=== PATIENT | male | born 1945 | race Hispanic/Latino ===

== ENCOUNTER 2016-11-05 08:33 | Day surgery (SDC) | payer MEDICARE, OTHER ==
[~2016-11-05 08:33] MED LIST: GARAMYCIN IV ONE; GARAMYCIN ONE; GENTAMICIN 0.3% ONE; KENALOG-40 ONE; XYLOCAINE 1%/ EPI 1:100,000 INFILTRATI ONE
[2016-11-05] MEDS ORDERED: NACL ONE (09:57)
--- NOTE | 2016-11-05 11:05 | Anesthesia Consultation ---
Anesthesia Consult and Med Hx Date of service: 11/05/16 - Airway Anesthetic Teeth Evaluation: Good ROM Head & Neck: Adequate Mental/Hyoid Distance: Adequate Mallampati Class: Class III Intubation Access Assessment: Possibly Difficult - Pulmonary Exam CTA: Yes - Cardiac Exam Cardiac Exam: RRR - Pre-Operative Health Status ASA Pre-Surgery Classification: ASA3 Proposed Anesthetic Plan: General - Pre-Anesthesia Comment Pre-Anesthesia Comments: NPO 10a, patient had <1/2 can of fresca soda.Did not tolerate MAC last procedure 02/2016, [place] - Pulmonary Hx Sleep Apnea: Yes - Cardiovascular System Hx Hypertension: Yes (x 35 years, high cholesterol) Hx Cardia Arrhythmia: Yes (RBBB) - Gastrointestinal Hx Gastroesophageal Reflux Disease: Yes (mild) - Endocrine Hx Non-Insulin Dependent Diabetes: Yes - Other Systems Hx Obesity: Yes (BMI 43)
--- NOTE | 2016-11-05 11:08 | Anesthesia Day of Surgery ---
Anesthesia Day of Surgery - Day of Surgery Patient Examined: Yes Patient H&P Reviewed: Yes Patient is NPO: Yes
[2016-11-05] MEDS ORDERED: PEPCID IV NR (12:00)
[2016-11-05] MEDS ORDERED: NACL 0.9% 1000 ML 1,000 ML IV SCH (12:00)
[2016-11-05] MEDS ORDERED: TETRACAINE 0.5% OD SCH (12:20)
[2016-11-05] MEDS: VIGAMOX OD SCH ×3 (12:42→12:58)
[2016-11-05] MEDS: ISOPTO CARPINE OD SCH ×3 (12:42→12:58)
[2016-11-05] MEDS ORDERED: ZOFRAN ONE (13:07)
[2016-11-05] MEDS ORDERED: DECADRON ONE ×2 (13:07→14:50)
[2016-11-05] MEDS ORDERED: XYLOCAINE MPF 2% ONE (13:07)
[2016-11-05] MEDS ORDERED: SUBLIMAZE ONE (13:08)
[2016-11-05] MEDS ORDERED: DIPRIVAN 10 MG/ML IV ONE (13:08)
[2016-11-05] MEDS ORDERED: BSS OD ONE (14:10)
[2016-11-05] MEDS ORDERED: BSS PLUS IO ONE (14:16)
[2016-11-05] MEDS ORDERED: DUOVISC VISCOELASTIC INTRAOCULA ONE (14:21)
[2016-11-05] MEDS ORDERED: VISION BLUE IO ONE (14:36)
[2016-11-05] MEDS ORDERED: GARAMYCIN IV ONE (15:14)
[2016-11-05] MEDS ORDERED: TOBRADEX OD ONE (15:16)
[2016-11-05] MEDS ORDERED: PRED FORTE 1% OD ONE (15:17)
[2016-11-05] MEDS ORDERED: TOBRADEX ONE (15:23)
--- NOTE | 2016-11-05 15:41 | Operative Report ---
Operative Report Operative Report: PATIENT NAME: DATE OF : DATE OF SURGERY: 11/05/2016 PREOPERATIVE DIAGNOSIS: Fuchs dystrophy right eye POSTOPERATIVE DIAGNOSIS: [same] PROPOSED PROCEDURE: Endothelial keratoplasty with Descemets stripping/ Penetrating keratoplasty, *right eye ADDITIONAL PROCEDURE: NONE OPERATIVE PROCEDURE: 1. Endothelial keratoplasty with Descemets stripping/ Penetrating keratoplasty, right eye SURGEON: Stefany Musa MD ANESTHESIA: General anesthesia care in combination with topical and intracameral anesthesia because of the established specific risk of reflux, arrhythmias, or anxiety attacks associated with ocular manipulation, as well as the difficulty of the stamping mill tender to manage such potentially catastrophic events while simultaneously attempting to complete the surgical procedure and was deemed necessary for the patient's safety to have an anesthesiologist was present during the procedure whenever possible. The anesthesiologist was utilized to regulate the intravenous sedation of the patient so the patient was cooperative yet not asleep in order for the patient to successfully maintain fixation of the eye on the operating light of the microscope. SOUND INSTALLATION WORKER: COMPLICATIONS: None ALLERGIES: Sulfa PREOPERATIVE NOTE: The patient is a [male] who has the diagnosis or diagnoses of Fuchs dystrophy. Examination of the posterior portion of the eyes by indirect ophthalmoscopy shows the optic nerve and retina to be normal. The patient has decompensation of the cornea with dysfunction and dystrophy of the corneal endothelium. Donor tissue will be used to replace the dysfunctional endothelium utilizing a penetrating technique into the anterior chamber. This complicated technique allows the patient to maintain structural integrity of the eye making it much more resistant to traumatic rupture than a standard keratoplasty. It also allows a larger than average surface area of transplanted endothelium which hopefully in the long run will allow for longer endothelial viability and success for the surgery. It also provides for faster visual recovery and less anisometropia than previous keratoplasty techniques. It is technically more difficult because of the complicated preparation of the donor tissue and insertion of the donor tissue into the anterior chamber with fixation of the tissue without direct suturing of the donor. This also provides an increased chance of dislocation of the donor tissue in the immediate postoperative period compared to standard keratoplasty techniques. This type of corneal transplant takes over twice as long as a standard corneal transplant. Moreover, the preparation and end of surgery are more time consuming for both the surgeon and staff: the blocking of the eye requires a longer setup time as noted, the procedure itself is more complex, and the patient needs to lay face up and flat in the recovery area for a specified period of time prior to discharge. Preoperatively, it was discussed with the patient that they could have either a standard corneal transplant or a variation of a penetrating keratoplasty where only the posterior layers of the cornea are transplanted. With this new technique, as with any corneal transplant, there is always the possibility that the surgery may need to be repeated; or, in this case, also repeated with a standard corneal transplant if the visual result is not satisfactory. However, some of the advantages of this current technique are much more rapid visual recovery and a tectonically stronger eye after surgery. PROGNOSIS: Excellent INDICATIONS FOR SURGERY: The patient is undergoing surgery with the hope of eliminating or improving these visual difficulties. OPERATIVE REPORT: The patient was taken into the preoperative area and evaluated medically and found from a systemic standpoint to be suitable for the planned surgery and anesthesia. The patient was then sedated and monitored by anesthesia. The patient was next taken into the operating room where they were positioned on the operating bed. They were given drops of topical anesthetic in the operative eye. Betadine was used to scrub the periorbital area, eyelids, adjacent cheek and forehead. The prepped area was dried with sterile gauze. The patient was draped, and a wire speculum was placed between the eyelids. The horizontal diameter of the cornea was measured with calipers to assist in determining the proper sizing of the trephination blade to be used for donor incision and for removal of the patients central Descemets membrane. PREPARATION OF DONOR TISSUE: Prior to surgery, the donor tissue was inspected and found to be adequate for the planned procedure. The involved eye bank provided the usual demographic information on the donor including age, cause of , necessary screening and blood work. The results were negative regarding possible transmission of diseases from the donor. Our inspection of the donor tissue showed no gross abnormalities. The patients donor cornea was prepared by the eye bank to separate the anterior and posterior portions of the cornea for the planned surgery. This was done with a microkeratome and the anterior cap of tissue was placed back on the cornea and it was removed from the artificial anterior chamber and placed in the Optisol storage solution and sent to us for transplantation. Gentian timi kwok were placed on the epithelial, or anterior surface of the corneal cap side of the tissue for identification. The cornea was inspected prior to surgery and found to be suitable and at the time of surgery was taken out of the storage solution and carefully centered on the cutting block with the centration based on the centration med that was made the eye bank on the external surface of the cornea-the stromal side. The donor tissue was removed from the tissue storage container by carefully removing it with forceps taking care not to touch the endothelial surface but only the scleral rim Suction was applied, the centration was rechecked to make sure it was perfectly centered. Once the size of the appropriate trephine was determined, the donor was punched with the trephine. The donor cornea was then covered with tissue storage solution and put aside for use later in the surgical procedure. PREPARATION OF THE RECIPIENT CORNEA: Attention was now directed to the patients eye. My entry level marketing assistant had been applying topical anesthetic consisting of both drops and cellulose sponges soaked in 2% Xylocaine with epinephrine. The speculum had already been placed between the eyelids and the eye prepped and draped in my usual manner with Betadine solution prior to the starting the surgery. The horizontal corneal diameter was measured and the overall condition of the eye was evaluated to determine which size of trephine would best provide for as large donor button as possible without compromising the angle structures or iris. Once the trephine size was chosen, it was used lightly to med the epithelium on the corneal surface to provide a reference for later placement of the donor tissue and for removal of Descemets membrane. This was the same trephine used to punch the donor tissue. Reopen old incision if corneal: The patient had previously had a clear corneal incision of 5.0 mm for corneal surgery. This incision was able to be opened by using a Sinskey hook to separate the superficial area of the wound. Next, a cyclodialysis spatula was used to separate the deeper anterior vertical portion and the incision and then the lamellar portion. After the side port incision was made as noted below, a specially modified Santiago-Jorge Luis hook was introduced through the reopened incision into the anterior chamber and advanced to the nasal side of the chamber. The hook was used to grab the nasal side of the graft and dislodge it. Pulling with the hook, the graft was disinserted from the back surface of the patient, or recipient, cornea and removed from the eye. In this case, the Descemets, which was stripped and removed, consisted of the previous graft with the portion of stroma from the previous donor. A sharp blade was next used to make a stab incision in mid peripheral cornea into the anterior chamber. This was done so that the inner portion would be covered by the donor tissue later in the case. Gentian timi marked the incision as well. This incision was positioned to be used by my right hand. Provisc was injected into the eye. A modified Santiago-Jorge Luis hook was next placed through the stab incision and the hook was used to score Descemets membrane in a circular fashion, essentially scoring a southern ute about 1.0 mm smaller than the previously placed reference med by the trephine on the epithelium. A specially designed Descemets stripper/scraper was inserted into the eye and carefully extended across the anterior chamber in a manner not to empty the anterior chamber, to damage the iris, or to damage the lens. Starting at the nasal side of the anterior chamber, the stripper was used to catch Descemets membrane at the site of the scoring and the membrane was carefully stripped off the back surface of the cornea. The stripper was first pulled back centrally to loosen Descemets membrane there and then to each side to help try and remove the central area of Descemets membrane which had been outlined by the scoring. The membrane was then pulled out of the eye through the incision. The removed Descemets membrane was placed on the outer surface of the cornea and carefully unfolded to make sure it was removed in its entirety and that no portion was left in the central cornea. Any indication of retained central membrane was followed by reinsertion of the stripper and further removal of retained membrane. Care was taken during both the scoring and stripping not to unduly push up into the overlying cornea as that can cause tearing of the corneal tissue, producing an irregular surface which can lead to decreased visual recovery and difficulty with adherence of the donor tissue to the recipient. Once it was confirmed that Descemets membrane was removed, the incision was extended with the sharp blade for its full length into the anterior chamber. The anterior chamber was reinflated with balanced salt solution. The donor tissue was removed from the cutting block and transferred to the operative field. It was placed on the patients cornea so that the endothelium of the donor was facing up. The tissue storage solution and any blood or other material was allowed to flow off the donor tissue. A small amount of viscoelastic was then placed on the endothelial surface of the donor. Two forceps were then used to grasp an edge of the donor taking care not to actually touch the endothelium and the posterior portion of the donor, which had been previously dissected on the artificial anterior chamber, and the donor gently partially pulled apart about half of the posterior portion from the anterior portion. Tiers forceps were used to grab the tissue and insert it into the anterio chamber. Using a 30-gauge needle, a small stab incision was made in the peripheral cornea and a small amount of air was injected within the folded-over piece of donor tissue in the eye. The air was slowly injected to unfold the donor endothelial side down. Once the donor had unfolded, the anterior chamber was completely filled with air. Once the donor was in the correct position and no retained fluid or air was present between the donor and recipient, the timer was started and the anterior chamber was left completely filled with air for the designated time. OTHER SPECIFICS OF THE SURGICAL PROCEDURE: Trephine size: 8.0 mm Horizontal corneal diameter: 10.5 mm Estimated thickness of donor tissue: 90microns Time anterior chamber was completely filled with air in the operating room while the donor cornea was allowed to hold in position without any manipulation or massaging: eight minutes The patient laid face up and flat in the recovery room with a partial air bubble to help with further adherence of the donor cornea to the recipient cornea for the following length of time: 60 minutes Needle reposition of the donor: The donor button of tissue could not be massaged into the correct position on the recipient cornea. Therefore, a 30- gauge needle was bent at its tip to form a right angle of the peripheral one- third to one-half of the beveled area. This needle was introduced into the anterior chamber and used to grasp the peripheral edge of the donor tissue and pull it into the correct position. Massage was then used to provide good apposition and centration of the tissue. SUBCONJUNCTIVAL INJECTIONS: Decadron 0.1 mL PF MEDICATIONS APPLIED AT END OF SURGERY: TobraDex ointment, homatropine 5%, Decadron 8mg mg was given by I.V.. ADDITIONAL NOTES: [employer], DISCHARGE SUMMARY: The patient was released in stable condition. The patient and those with the patient were given a written sheet of postoperative instructions and counseling on any abnormal laboratory studies. The patient is to call immediately for difficulties and will otherwise see us in the morning at the office. Jorge Velazco cc: Dictated: Worksheets: Transcribed:
--- NOTE | 2016-11-05 15:43 | Short Stay Summary ---
Short Stay Documentation Date of service: 11/05/16 - History H&P: obtained from office - Allergies and Medications Current Medications: Allergies Sulfa (Sulfonamide Antibiotics) Allergy (Verified 02/19/16 14:25) Hives Home Medications Medication Instructions Recorded Confirmed Last Taken Type Aspirin [Adult Low Dose Aspirin EC] 81 mg PO DAILY 12/31/15 11/04/16 11/04/16 History AtorvaSTATin [Lipitor] 20 mg PO DAILY 12/31/15 11/04/16 11/04/16 History Enalapril Maleate [Vasotec] 10 mg PO DAILY 12/31/15 11/04/16 11/04/16 History Glimepiride [Amaryl] 2 mg PO QAM 12/31/15 11/04/16 11/04/16 History Metformin HCl [Fortamet ER] 1,000 mg PO BID 12/31/15 11/04/16 11/04/16 History Multivitamin with Folic Acid [One 400 mcg PO DAILY 12/31/15 11/04/16 11/04/16 History Daily Multivitamin Tablet] Newton-3 Fatty Acids/Fish Oil [Fish 1 tab PO DAILY 12/31/15 11/04/16 11/04/16 History Oil] Wheat Dextrin [Benefiber] 1 each PO DAILY 12/31/15 11/04/16 11/04/16 History amLODIPine [Norvasc] 10 mg PO DAILY 12/31/15 11/04/16 11/04/16 History Bromfenac Sodium [Prolensa] 1 drop OS BID 11/04/16 11/05/16 11/05/16 07:15 History Multivit-Min/FA/Lycopen/Lutein 1 each PO DAILY 11/04/16 11/04/16 11/04/16 History [Senior Tabs] Vit C/E/Zn/Coppr/Lutein/Zeaxan 1 each PO BID 11/04/16 11/04/16 11/04/16 History [Preservision Areds 2 Softgel] prednisoLONE ACETATE 1% [Pred 1 drop OS DAILY 11/04/16 11/05/16 11/05/16 07:15 History Forte 1%] Active Medications Famotidine (Pepcid) 20 mg IV PREOP NR Stop: 11/05/16 21:00 Last Admin: 11/05/16 12:55 Dose: 20 mg Sodium Chloride (Nacl 0.9% 1000 Ml) 1,000 mls @ 42 mls/hr IV DIRECT JUVENAL Last Admin: 11/05/16 12:48 Dose: 42 mls/hr Moxifloxacin HCl (Vigamox) 1 drops OD Q5MIN JUVENAL Stop: 11/05/16 23:59 Last Admin: 11/05/16 12:58 Dose: 1 drops Pilocarpine HCl (Isopto Carpine) 1 drops OD Q5MIN JUVENAL Stop: 11/05/16 23:59 Last Admin: 11/05/16 12:58 Dose: 1 drops Tetracaine HCl (Tetracaine 0.5%) 1 drops OD Q5M JUVENAL Stop: 11/05/16 23:59 Last Admin: 11/05/16 12:40 Dose: 1 drops - Brief post op/procedure progress note Date of procedure: 11/05/16 Pre-op diagnosis: Fuchs' dustrophy Post-op diagnosis: same Procedure: Descemet's stripping endothelial keratoplasty right eye Anesthesia: GETA Surgeon: SALEEM KINSEY Estimated blood loss: none Pathology: none Specimen disposition: to lab (donor cornea) Condition: stable - Disposition Condition at discharge: Fair Disposition: DC- TO HOME OR SELFCARE - Discharge Diagnoses (1) Fuchs' corneal dystrophy Status: Resolved Short Stay Discharge Plan Additional Instructions: REST FLAT OVERNIGHT EXCEPT TO EAT AND USE BATHROOM. USE MEDS DIRECTED. FOLLOWUP SCHEDULED Follow up with: ORLANDO RAMSEY MD [Primary Care Provider] - 7 Days Forms: Outpatient Surgery DC Inst.
--- NOTE | 2016-11-05 16:20 | Post Anesthesia Evaluation ---
- Post Anesthesia Evaluation Patient Participated: Yes Airway Patent: Yes Stable Respiratory Function: Yes Temp > 96.8F: Yes Pain Manageable: Yes Adequeate Hydration: Yes Anesthesia Complications: No Block Receding Appropriately: Not Applicable
[2016-11-05 17:31] VITALS: BP 125/78
[2016-11-05] MEDS ORDERED: PRED FORTE 1% OU SCH (18:00)
== END 2016-11-05 17:20 | disposition home or self-care (01) ==
LOC: OR 08:33
DX: H18.51 Endothelial corneal dystrophy (principal); E11.9 Type 2 diabetes mellitus without complications; I10 Essential (primary) hypertension; E78.5 Hyperlipidemia, unspecified; K21.9 Gastro-esophageal reflux disease without esophagitis; M19.90 Unspecified osteoarthritis, unspecified site; E66.9 Obesity, unspecified; Z68.41 Body mass index [BMI] 40.0-44.9, adult; Z88.2 Allergy status to sulfonamides; Z79.899 Other long term (current) drug therapy; Z79.84 Long term (current) use of oral hypoglycemic drugs; Z79.82 Long term (current) use of aspirin; Z94.7 Corneal transplant status
CPT/HCPCS: 65756; 65757; 82962; 87075; 87116; J1100; J1580; J2405; J2704; J3010; J7030; J3301; V2785